=== PATIENT | female | born 1940 | race Caucasian/White ===

== ENCOUNTER → 2017-12-05 08:43 | Outpatient (CLI) | payer OTHER, SELFPAY ==
[2017-12-05 09:47] LABS: Add Manual Diff / Slide Review NO; Basophils Percent Auto 0.5 % (0-2); Eosinophils Percent Auto 2.1 % (2-4); Hematocrit 41.7 % (36-46); Hemoglobin 14.5 g/dL (12.0-16.0); Mean Corpuscular HGB Conc 34.7 % (30-36); Mean Corpuscular Hemoglobin 30.7 PG (26-34); Mean Corpuscular Volume 88.3 fL (80-100); Monocytes Percent Auto 7.1 % (3-14); Neutrophils Absolute Auto 1800 /uL (3000-5900); Neutrophils Percent Auto 46.3 % (50-75); Platelet Count 133 X10^3/uL (150-400); Red Blood Cell Count 4.72 X10^6/uL (4.0-5.2); Red Cell Distribution Width 14.7 % (11.6-14.8); White Blood Cell Count 3.9 X10^3/uL (4.5-11.0)
[2017-12-05 10:24] LABS: Alanine Aminotransferase 49 IU/L (9-52); Albumin 4.3 g/dL (3.5-5.0); Albumin Globulin Ratio 1.3 (1.0-2.8); Alkaline Phosphatase 54 U/L (38-126); Aspartate Aminotransferase 42 IU/L (14-36); BUN Creatinine Ratio 16.7 (6-22); Bilirubin Total 2.4 mg/dL (0.2-1.3); Blood Urea Nitrogen 10 mg/dL (7-17); Calcium 9.3 mg/dL (8.4-10.2); Carbon Dioxide 29 mmol/L (22-32); Chloride 105 mmol/L (98-107); Estimated Glomerular Filt Rate > 60.0 mL/min (>60); Globulin 3.2 g/dL (1.7-4.1); Glucose 110 mg/dL (80-110); HEMOLYSIS < 15 (0-50); Potassium 4.1 mmol/L (3.4-5.1); Sodium 145 mmol/L (137-145); Total Protein 7.5 g/dL (6.3-8.2)
== END ==
PROVIDERS: PCP Internal Medicine; Visit Provider Internal Medicine
DX: K86.2 Cyst of pancreas (principal); E80.7 Disorder of bilirubin metabolism, unspecified; I10 Essential (primary) hypertension
CPT/HCPCS: 36415; 80053; 85025

== ENCOUNTER → 2017-12-19 13:50 | Outpatient (CLI) | payer OTHER, SELFPAY | PROVIDERS: Family Provider Internal Medicine; PCP Internal Medicine; Visit Provider Internal Medicine | DX: M81.0 Age-related osteoporosis without current pathological fracture (principal); Z78.0 Asymptomatic menopausal state | CPT/HCPCS: 77080 ==

== ENCOUNTER → 2018-02-27 09:51 | Outpatient (CLI) | payer OTHER, SELFPAY ==
--- NOTE | 2018-02-27 | DI.MG.S_ITS ---
BILATERAL DIGITAL SCREENING MAMMOGRAM 3D/2D WITH CAD: 02/27/2018 CLINICAL: Routine screening. Comparison is made to exams dated: 01/26/2017 mammogram, 04/24/2015 mammogram - [facility], and 01/26/2012 mammogram - [facility]. The tissue of both breasts is heterogeneously dense. This may lower the sensitivity of mammography. Current study was also evaluated with a Computer Aided Detection (CAD) system. There are benign vascular and secretory calcifications in both breasts. No significant masses, calcifications, or other findings are seen in either breast. IMPRESSION: There is no mammographic evidence of malignancy. A 1 year screening mammogram is recommended. This exam was interpreted at Station ID: [id number]. NOTE: For mammograms, a report in lay terms will be sent to the patient. Approximately 15% of breast malignancies will not be visualized mammographically. In the management of a palpable breast mass, a negative mammogram must not discourage biopsy of a clinically suspicious lesion. Electronically Signed By: Mono Hopper M.D. ecl/:02/27/2018 20:10:29 letter sent: Normal Exam ACR BI-RADS Category 2: Benign Finding(s) 3342F
== END ==
PROVIDERS: Family Provider Internal Medicine; PCP Internal Medicine; Visit Provider Internal Medicine
DX: Z12.31 Encounter for screening mammogram for malignant neoplasm of breast (principal)
CPT/HCPCS: 77063; 77067

== ENCOUNTER → 2018-04-30 14:17 | Outpatient (CLI) | payer OTHER, SELFPAY ==
[2018-04-30 14:54] LABS: Add Manual Diff / Slide Review NO; Basophils Absolute Auto 0 /uL (0-100); Basophils Percent Auto 0.4 % (0-2); Eosinophils Absolute Auto 100 /uL (0-450); Eosinophils Percent Auto 2.8 % (2-4); Hematocrit 41.3 % (36-46); Hemoglobin 14.1 g/dL (12.0-16.0); Lymphocytes Absolute Auto 2000 /uL (1100-4500); Lymphocytes Percent Auto 51.8 % (25-40); Mean Corpuscular HGB Conc 34.1 % (30-36); Mean Corpuscular Hemoglobin 30.5 PG (26-34); Mean Corpuscular Volume 89.3 fL (80-100); Monocytes Absolute Auto 400 /uL (0-900); Monocytes Percent Auto 9.6 % (3-14); Neutrophils Absolute Auto 1400 /uL (1500-7000); Neutrophils Percent Auto 35.4 % (50-75); Platelet Count 136 X10^3/uL (150-400); Red Blood Cell Count 4.63 X10^6/uL (4.0-5.2); Red Cell Distribution Width 14.9 % (11.6-14.8); White Blood Cell Count 3.9 X10^3/uL (4.5-11.0)
[2018-04-30 15:07] LABS: Alanine Aminotransferase 38 IU/L (9-52); Albumin 4.5 g/dL (3.5-5.0); Albumin Globulin Ratio 1.4 (1.0-2.8); Alkaline Phosphatase 64 U/L (38-126); Aspartate Aminotransferase 37 IU/L (14-36); BUN Creatinine Ratio 23.3 (6-22); Bilirubin Total 1.4 mg/dL (0.2-1.3); Blood Urea Nitrogen 14 mg/dL (7-17); Calcium 9.2 mg/dL (8.4-10.2); Carbon Dioxide 29 mmol/L (22-32); Chloride 103 mmol/L (98-107); Estimated Glomerular Filt Rate > 60.0 mL/min (>60); Globulin 3.2 g/dL (1.7-4.1); Glucose 80 mg/dL (80-110); HEMOLYSIS 19 (0-50); Potassium 4.7 mmol/L (3.4-5.1); Sodium 142 mmol/L (137-145); Total Protein 7.7 g/dL (6.3-8.2)
[2018-04-30 15:38] LABS: TSH w/ Reflex to FT4 0.57 uIU/mL (0.47-4.68)
== END ==
PROVIDERS: PCP Internal Medicine; Visit Provider Internal Medicine
DX: I10 Essential (primary) hypertension (principal); E78.00 Pure hypercholesterolemia, unspecified; D70.9 Neutropenia, unspecified; E80.7 Disorder of bilirubin metabolism, unspecified
CPT/HCPCS: 36415; 80053; 84443; 85025

== ENCOUNTER 2018-06-15 16:43 | Emergency (ER) | payer OTHER, SELFPAY ==
[2018-06-15 16:53] VITALS: BP 186/77; PULSE 66; RESP 16; TEMP 36.9; O2SAT 100
--- NOTE | 2018-06-15 16:57 | DI.RAD.S_ITS ---
PROCEDURE: XR WRIST RT MIN 3V INDICATIONS: FALL TECHNIQUE: 3 views of the wrist were acquired. COMPARISON: None. FINDINGS: Bones: No fractures or dislocations. Severe degenerative sclerosis, hypertrophic changes, and joint space loss of the first carpal metacarpal joint. No suspicious bony lesions. Soft tissues: No suspicious soft tissue calcifications. IMPRESSION: 1. No visible fractures. 2. Severe first CMC joint osteoarthritis. 3. If there is continued concern for fracture, immobilization and reimaging in 7-10 days is recommended. Dictated by: Parisa Wilkinson M.D. on 06/15/2018 at 17:24 Approved by: Parisa Wilkinson M.D. on 06/15/2018 at 17:28
--- NOTE | 2018-06-15 16:58 | DI.RAD.S_ITS ---
PROCEDURE: XR HAND RT MIN 3V INDICATIONS: fall TECHNIQUE: 3 views of the hand(s) acquired. COMPARISON: None. FINDINGS: Bones: Diffuse demineralization. No visible fractures or dislocations. Severe osteoarthritic changes at the distal interphalangeal joints 2 through 5, and proximal interphalangeal joints, particularly first and second. Severe osteophytic change at the first carpometacarpal joint. Mild, chronic appearing subluxation at these joints. Carpal bones are normally aligned. No suspicious bony lesions. Soft tissues: No suspicious soft tissue calcifications. Swelling of the second proximal and distal interphalangeal joints IMPRESSION: 1. No visible fractures. 2. Severe osteoarthritic changes as described. Dictated by: Parisa Wilkinson M.D. on 06/15/2018 at 17:32 Approved by: Parisa Wilkinson M.D. on 06/15/2018 at 17:34
[2018-06-15 20:48] VITALS: BP 186/72; PULSE 75; RESP 16; O2SAT 100
--- NOTE | 2018-06-15 20:48 | ED.UPPEXIN ---
HPI - Extremity Injury (Upper) General Chief Complaint: Extremity Injury, Upper Stated Complaint: fall this morning, right wrist pain now Time Seen by Provider: 06/15/18 20:48 Source: patient Mode of arrival: ambulatory Limitations: no limitations History of Present Illness HPI narrative: Patient is a 77-year-old female who sustained a mechanical fall landing on her right wrist and her right knee. She stated that since the fall her right knee has been a little sore but she has been able to walk on it. She is here because she is having pain in her right wrist that she states is extending up to just below her elbow. She can flex and extend the wrist but has pain in this area. Patient states she did not hit her head. No other injuries reported. Related Data Home Medications Medication Instructions Recorded Confirmed alendronate [Fosamax] 70 mg PO QWEEK #0 tab 12/29/15 06/15/18 atorvastatin [Lipitor] 20 mg PO DAILY #0 12/29/15 06/15/18 biotin 5,000 mcg PO DAILY #0 12/29/15 06/15/18 multivitamin [Multiple Vitamins] 1 tab PO DAILY #0 tab 12/29/15 06/15/18 nifedipine 30 mg PO DAILY #0 tab 12/29/15 06/15/18 omega 0-evi-lpb-fish oil [Fish Oil] 1 cap PO BID #0 tab 12/29/15 06/15/18 vitamin B complex [B 1 tab PO DAILY #0 tab 12/29/15 06/15/18 Complex-Vitamin B12] Calcium 1,200 mg PO BID 06/15/18 06/15/18 atenolol 25 mg PO QAM 06/15/18 06/15/18 atenolol 50 mg PO QPM 06/15/18 06/15/18 cholecalciferol (vitamin D3) 5,000 unit PO DAILY 06/15/18 06/15/18 [Vitamin D3] magnesium oxide 500 mg PO DIRECTED 06/15/18 06/15/18 warfarin 2.5 mg PO DAILY 06/15/18 Allergies Allergy/AdvReac Type Severity Reaction Status Date / Time Sulfa (Sulfonamide Allergy Mild FACIAL/EYE Unverified 07/05/17 12:24 Antibiotics) SWELLING, [SULFA (SULFONAMIDE ITCHING ANTIBIOTICS)] hydrocodone [HYDROCODONE] AdvReac Severe NAUSEA, Unverified 07/05/17 12:24 HEADACHE Review of Systems Constitutional Denies frequent falls, Denies headache(s) and Denies weakness ENT Ears, Nose, Mouth, and Throat: Denies vertigo, Denies dizziness, Denies headache(s) and Denies disequilibrium Cardiovascular Denies chest pain, Denies syncope and Denies dyspnea Respiratory Denies dyspnea Gastrointestinal Gastrointestinal: Denies abdominal pain, Denies nausea and Denies vomiting Musculoskeletal Comments: Right wrist pain Integumentary/Breasts Denies lesions and Denies rash Neurologic Denies confusion, Denies vertigo, Denies dizziness, Denies syncope, Denies frequent falls, Denies headache(s), Denies paresthesias, Denies disequilibrium and Denies weakness Psychiatric Denies confusion Hematologic/Lymphatic Denies easy bleeding and Denies easy bruising PFSH Medical History Hypertension (Acute) Osteoporosis (Acute) Social History Smoking Status: Never smoker Social History Smoking Status: Never smoker Exam Initial Vital Signs Initial Vital Signs: Vital Signs Temperature 98.5 F 06/15/18 16:53 Pulse Rate 66 06/15/18 16:53 Respiratory Rate 16 06/15/18 16:53 Blood Pressure 186/77 H 06/15/18 16:53 Pulse Oximetry 100 06/15/18 16:53 Const General: cooperative, comfortable, well developed, well groomed and No acute distress Orientation: alert, awake and oriented x3 Resp Effort & Inspection: normal respiratory effort Cardio Pulses: radial pulses present on the right Skin Lesions: no lesions Rashes: no rashes Neuro Sensory Exam: no sensory deficits noted Extrem Other: Patient with some tenderness to palpation on the volar aspect of the right wrist. No tenderness to palpation of the anatomical snuffbox. No tenderness palpation with axial loading of the thumb. Patient able to pronate and supinate without discomfort. Right elbow and right shoulder unremarkable. Fingers unremarkable. Procedures Orthopedic Splinting/Casting Injury #1: Side: right Upper Extremity Injury Location: wrist Upper Extremity Immobilizer: wrist splint Post splinting neuro exam: intact and no change Post splinting vascular exam: no change Placed by: Nursing Course Orders Ordered: ED Orders 06/15/18 16:57 XR wrist RT min 3V Stat 06/15/18 16:58 XR hand RT min 3V Stat Vital Signs - 8 hr 06/15/18 20:48 03/22/19 21:17 Pulse Rate 75 85 Respiratory Rate 16 Blood Pressure 161/70 H Blood Pressure [Left Arm] 186/72 H Pulse Oximetry 100 MDM - Extremity Injury (Upper) Imaging Data X-ray wrist: Radiologist's impression: [address] [address] XRay Report Signed Patient: Whitney Dalal PMR#: [id number] : 9Acct:[id number] Age/Sex: 77 / FDate of Service: 06/15/18 Loc: ED Accession Number: [id number] Procedure: XR wrist RT min 3V Ordering Provider: Faith Verma D.O. PROCEDURE: XR WRIST RT MIN 3V INDICATIONS: FALL TECHNIQUE: 3 views of the wrist were acquired. COMPARISON: None. FINDINGS: Bones: No fractures or dislocations. Severe degenerative sclerosis, hypertrophic changes, and joint space loss of the first carpal metacarpal joint. No suspicious bony lesions. Soft tissues: No suspicious soft tissue calcifications. IMPRESSION: 1. No visible fractures. 2. Severe first CMC joint osteoarthritis. 3. If there is continued concern for fracture, immobilization and reimaging in 7-10 days is recommended. Dictated by: Parisa Wilkinson M.D. on 06/15/2018 at 17:24 Approved by: Parisa Wilkinson M.D. on 06/15/2018 at 17:28 X-ray hand: Radiologist's impression: [address] [id number] XRay Report Signed Patient: Whitney Dalal PMR#: [id number] : 9At:[id number] Age/Sex: 77 / FDate of Service: 06/15/18 Loc: ED Accession Number: [id number] Procedure: XR hand RT min 3V Ordering Provider: Faith Verma D.O. PROCEDURE: XR HAND RT MIN 3V INDICATIONS: fall TECHNIQUE: 3 views of the hand(s) acquired. COMPARISON: None. FINDINGS: Bones: Diffuse demineralization. No visible fractures or dislocations. Severe osteoarthritic changes at the distal interphalangeal joints 2 through 5, and proximal interphalangeal joints, particularly first and second. Severe osteophytic change at the first carpometacarpal joint. Mild, chronic appearing subluxation at these joints. Carpal bones are normally aligned. No suspicious bony lesions. Soft tissues: No suspicious soft tissue calcifications. Swelling of the second proximal and distal interphalangeal joints IMPRESSION: 1. No visible fractures. 2. Severe osteoarthritic changes as described. Dictated by: Parisa Wilkinson M.D. on 06/15/2018 at 17:32 Approved by: Parisa Wilkinson M.D. on 06/15/2018 at 17:3 [facility] Narrative Medical decision making narrative: No fractures were noted on the x-ray. Patient is neurovascularly intact. Patient was placed in a removable wrist splint for comfort. She was given care instructions and return precautions. She expressed understanding and agreement with plan. Discharge Plan Departure Patient Disposition: Home Clinical Impression: Sprain and strain of wrist Discharge Date/Time: 06/15/18 21:18 Interventions: ED Discharge Assessment Last Done: 06/15/18 21:17 Instructions: DI for Wrist Sprain Activity Restrictions/Additional Instructions: Use the wrist splint for the next couple days. You can take it off to wash your hands and to shower. Be sure to ice your wrist. Contact your primary care doctor for a follow-up. If your symptoms are not improved in 7-10 days then I do recommend repeat x-rays Prescriptions: No Action atorvastatin [Lipitor] 20 MG tablet 20 mg PO DAILY Qty: 0 RF: 0 alendronate [Fosamax] 70 MG tablet 70 mg PO QWEEK Qty: 0 RF: 0 biotin 2,500 MCG capsule 5,000 mcg PO DAILY Qty: 0 RF: 0 omega 5-xcw-jav-fish oil [Fish Oil] 1,000 mg (120 mg-180 mg) Capsule 1 cap PO BID Qty: 0 RF: 0 multivitamin [Multiple Vitamins] 1 EACH tablet 1 tab PO DAILY Qty: 0 RF: 0 nifedipine 30 MG tablet extended release 30 mg PO DAILY Qty: 0 RF: 0 vitamin B complex [B Complex-Vitamin B12] 1 EACH tablet 1 tab PO DAILY Qty: 0 RF: 0 atenolol 25 mg Tablet 25 mg PO QAM RF: 0 atenolol 25 mg Tablet 50 mg PO QPM RF: 0 magnesium oxide 500 mg Capsule 500 mg PO DIRECTED RF: 0 cholecalciferol (vitamin D3) [Vitamin D3] 5,000 unit Tablet 5,000 unit PO DAILY RF: 0 Calcium 1,200 mg 1,200 mg PO BID RF: 0 warfarin 5 mg Tablet 2.5 mg PO DAILY RF: 0 Referrals: Laurent Melton MD [Primary Care Provider] -
[2018-06-15 21:17] VITALS: BP 161/70; PULSE 85
== END 2018-06-15 21:18 | disposition home or self-care (01) ==
PROVIDERS: Emergency Provider Emergency Medicine; Family Provider Internal Medicine; PCP Internal Medicine
DX: S63.501A Unspecified sprain of right wrist, initial encounter (principal); W19.XXXA Unspecified fall, initial encounter
CPT/HCPCS: 73110; 73130; 99282; 99283

== ENCOUNTER → 2018-11-01 10:23 | Outpatient (CLI) | payer OTHER, SELFPAY ==
[2018-11-01 11:16] LABS: Add Manual Diff / Slide Review NO; Basophils Absolute Auto 0 /uL (0-100); Basophils Percent Auto 0.4 % (0-2); Eosinophils Absolute Auto 100 /uL (0-450); Hematocrit 39.1 % (36-46); Hemoglobin 13.6 g/dL (12.0-16.0); Lymphocytes Absolute Auto 1600 /uL (1100-4500); Lymphocytes Percent Auto 42.6 % (25-40); Mean Corpuscular HGB Conc 34.8 % (30-36); Mean Corpuscular Hemoglobin 30.2 PG (26-34); Monocytes Absolute Auto 300 /uL (0-900); Monocytes Percent Auto 8.8 % (3-14); Neutrophils Absolute Auto 1800 /uL (1500-7000); Neutrophils Percent Auto 46.2 % (50-75); Platelet Count 119 X10^3/uL (150-400); Red Cell Distribution Width 14.3 % (11.6-14.8); White Blood Cell Count 3.8 X10^3/uL (4.5-11.0)
[2018-11-01 11:25] LABS: Alanine Aminotransferase 35 IU/L (9-52); Albumin Globulin Ratio 1.3 (1.0-2.8); Alkaline Phosphatase 54 U/L (38-126); Aspartate Aminotransferase 35 IU/L (14-36); Bilirubin Total 2.5 mg/dL (0.2-1.3); Blood Urea Nitrogen 16 mg/dL (7-17); Calcium 9.1 mg/dL (8.4-10.2); Carbon Dioxide 28 mmol/L (22-32); Chloride 103 mmol/L (98-107); Estimated Glomerular Filt Rate > 60.0 mL/min (>60); Glucose 118 mg/dL (80-110); HEMOLYSIS < 15 (0-50); Potassium 4.7 mmol/L (3.4-5.1); Sodium 138 mmol/L (137-145)
== END ==
PROVIDERS: PCP Internal Medicine; Visit Provider Internal Medicine
DX: I48.91 Unspecified atrial fibrillation (principal); I10 Essential (primary) hypertension; E80.7 Disorder of bilirubin metabolism, unspecified; D70.9 Neutropenia, unspecified
CPT/HCPCS: 36415; 80053; 85025

== ENCOUNTER → 2019-05-13 11:42 | Outpatient (CLI) | payer MEDICARE, SELFPAY ==
[2019-05-13 13:11] LABS: Add Manual Diff / Slide Review NO; Basophils Absolute Auto 0 /uL (0-100); Basophils Percent Auto 0.9 % (0-2); Eosinophils Absolute Auto 100 /uL (0-450); Hematocrit 38.6 % (36-46); Hemoglobin 13.6 g/dL (12.0-16.0); Lymphocytes Absolute Auto 1500 /uL (1100-4500); Lymphocytes Percent Auto 50.8 % (25-40); Mean Corpuscular HGB Conc 35.1 % (30-36); Mean Corpuscular Hemoglobin 30.4 PG (26-34); Mean Corpuscular Volume 86.5 fL (80-100); Monocytes Absolute Auto 300 /uL (0-900); Monocytes Percent Auto 9.5 % (3-14); Neutrophils Absolute Auto 1100 /uL (1500-7000); Neutrophils Percent Auto 36.8 % (50-75); Platelet Count 107 X10^3/uL (150-400); Red Blood Cell Count 4.47 X10^6/uL (4.0-5.2); Red Cell Distribution Width 14.9 % (11.6-14.8); White Blood Cell Count 2.9 X10^3/uL (4.5-11.0)
[2019-05-13 13:29] LABS: Alanine Aminotransferase 31 IU/L (<35); Albumin 4.2 g/dL (3.5-5.0); Albumin Globulin Ratio 1.4 (1.0-2.8); Alkaline Phosphatase 51 U/L (38-126); Aspartate Aminotransferase 40 IU/L (14-36); BUN Creatinine Ratio 25.7 (6-22); Bilirubin Total 2.7 mg/dL (0.2-1.3); Blood Urea Nitrogen 18 mg/dL (7-17); Calcium 9.6 mg/dL (8.4-10.2); Carbon Dioxide 28 mmol/L (22-32); Chloride 102 mmol/L (98-107); Estimated Glomerular Filt Rate > 60.0 mL/min (>60); Glucose 99 mg/dL (80-110); HEMOLYSIS < 15 (0-50); Potassium 4.7 mmol/L (3.4-5.1); Sodium 139 mmol/L (137-145); Total Protein 7.2 g/dL (6.3-8.2)
== END ==
PROVIDERS: PCP Internal Medicine; Referring Provider Internal Medicine; Visit Provider Internal Medicine
DX: I48.91 Unspecified atrial fibrillation (principal); K86.2 Cyst of pancreas; I10 Essential (primary) hypertension; D70.9 Neutropenia, unspecified
CPT/HCPCS: 36415; 80053; 85025

== ENCOUNTER → 2019-11-11 10:41 | Outpatient (CLI) | payer MEDICARE, SELFPAY ==
[2019-11-11 12:10] LABS: Add Manual Diff / Slide Review NO; Basophils Absolute Auto 0 /uL (0-100); Basophils Percent Auto 0.4 % (0-2); Eosinophils Absolute Auto 0 /uL (0-450); Eosinophils Percent Auto 1.7 % (2-4); Hematocrit 36.9 % (36-46); Hemoglobin 13.2 g/dL (12.0-16.0); Lymphocytes Absolute Auto 1400 /uL (1100-4500); Lymphocytes Percent Auto 49.7 % (25-40); Mean Corpuscular HGB Conc 35.6 % (30-36); Mean Corpuscular Hemoglobin 30.4 PG (26-34); Mean Corpuscular Volume 85.2 fL (80-100); Monocytes Absolute Auto 300 /uL (0-900); Monocytes Percent Auto 10.2 % (3-14); Neutrophils Absolute Auto 1000 /uL (1500-7000); Platelet Count 102 X10^3/uL (150-400); Red Blood Cell Count 4.34 X10^6/uL (4.0-5.2); Red Cell Distribution Width 14.5 % (11.6-14.8); White Blood Cell Count 2.7 X10^3/uL (4.5-11.0)
[2019-11-11 12:40] LABS: Alanine Aminotransferase 29 IU/L (<35); Albumin 3.8 g/dL (3.5-5.0); Albumin Globulin Ratio 1.5 (1.0-2.8); Alkaline Phosphatase 59 U/L (38-126); Aspartate Aminotransferase 35 IU/L (14-36); BUN Creatinine Ratio 18.1 (6-22); Bilirubin Total 2.1 mg/dL (0.2-1.3); Blood Urea Nitrogen 13 mg/dL (7-17); Calcium 8.9 mg/dL (8.4-10.2); Carbon Dioxide 26 mmol/L (22-32); Chloride 103 mmol/L (98-107); Estimated Glomerular Filt Rate > 60.0 mL/min (>60); Globulin 2.6 g/dL (1.7-4.1); Glucose 145 mg/dL (80-110); HEMOLYSIS < 15 (0-50); Sodium 136 mmol/L (137-145); Total Protein 6.4 g/dL (6.3-8.2)
== END ==
PROVIDERS: PCP Internal Medicine; Referring Provider Internal Medicine; Visit Provider Internal Medicine
DX: D69.6 Thrombocytopenia, unspecified (principal); K86.2 Cyst of pancreas
CPT/HCPCS: 36415; 80053; 85025

== ENCOUNTER → 2020-04-30 10:42 | Outpatient (CLI) | payer OTHER, SELFPAY ==
[2020-04-30 12:00] LABS: Add Manual Diff / Slide Review NO; Basophils Absolute Auto 0 /uL (0-100); Basophils Percent Auto 0.5 % (0-2); Eosinophils Absolute Auto 100 /uL (0-450); Hematocrit 38.6 % (36-46); Hemoglobin 13.4 g/dL (12.0-16.0); Lymphocytes Absolute Auto 1400 /uL (1100-4500); Lymphocytes Percent Auto 52.8 % (25-40); Mean Corpuscular HGB Conc 34.8 % (30-36); Mean Corpuscular Hemoglobin 30.2 PG (26-34); Mean Corpuscular Volume 86.8 fL (80-100); Monocytes Absolute Auto 200 /uL (0-900); Monocytes Percent Auto 7.7 % (3-14); Neutrophils Absolute Auto 1000 /uL (1500-7000); Platelet Count 68 X10^3/uL (150-400); Red Blood Cell Count 4.44 X10^6/uL (4.0-5.2); Red Cell Distribution Width 14.7 % (11.6-14.8); White Blood Cell Count 2.7 X10^3/uL (4.5-11.0)
[2020-04-30 12:12] LABS: Alanine Aminotransferase 31 IU/L (<35); Albumin Globulin Ratio 1.3 (1.0-2.8); Alkaline Phosphatase 63 U/L (38-126); Aspartate Aminotransferase 40 IU/L (14-36); BUN Creatinine Ratio 26.9 (6-22); Bilirubin Total 2.3 mg/dL (0.2-1.3); Blood Urea Nitrogen 18 mg/dL (7-17); Calcium 9.5 mg/dL (8.4-10.2); Carbon Dioxide 34 mmol/L (22-32); Chloride 103 mmol/L (98-107); Estimated Glomerular Filt Rate > 60.0 mL/min (>60); Globulin 3.2 g/dL (1.7-4.1); Glucose 78 mg/dL (80-110); HEMOLYSIS < 15 (0-50); Potassium 4.6 mmol/L (3.4-5.1); Sodium 138 mmol/L (137-145); Total Protein 7.2 g/dL (6.3-8.2)
== END ==
PROVIDERS: PCP Internal Medicine; Referring Provider Internal Medicine; Visit Provider Internal Medicine
DX: R73.02 Impaired glucose tolerance (oral) (principal); K86.2 Cyst of pancreas; D69.6 Thrombocytopenia, unspecified
CPT/HCPCS: 36415; 80053; 85025

== ENCOUNTER → 2020-05-13 12:24 | Outpatient (CLI) | payer OTHER, SELFPAY ==
--- NOTE | 2020-05-13 | DI.RAD.S_ITS ---
PROCEDURE: XR DEXA AXIAL SKELETON INDICATIONS: Routine screening COMPARISON: [facility], CR, XR DEXA AXIAL SKELETON, 12/19/2017, 14:25. FINDINGS: This blank DEXA report has been sent in error by the PACS system. The correct and complete report will be forthcoming in 1-2 days. Thank you for your patience and understanding. Dictated by: Sherrie Sandoval MD, PhD on 05/13/2020 at 17:51 Approved by: Sherrie Sandoval MD, PhD on 05/13/2020 at 17:51
== END ==
PROVIDERS: PCP Internal Medicine; Referring Provider Internal Medicine; Visit Provider Internal Medicine
DX: Z13.820 Encounter for screening for osteoporosis (principal); M85.852 Other specified disorders of bone density and structure, left thigh; Z78.0 Asymptomatic menopausal state; Z82.62 Family history of osteoporosis
CPT/HCPCS: 77080

== ENCOUNTER → 2020-06-10 14:56 | Outpatient (CLI) | payer MEDICARE, SELFPAY ==
[2020-06-10] MEDS: COVID-19 VACC #1, MRNA(MOD) 100 MCG/0.5 ML VIAL IM (15:12)
== END ==
PROVIDERS: PCP Internal Medicine; Visit Provider Internal Medicine
DX: Z23 Encounter for immunization (principal)
CPT/HCPCS: 0011A; 91301

== ENCOUNTER → 2020-07-08 16:17 | Outpatient (CLI) | payer MEDICARE, SELFPAY ==
[2020-07-08] MEDS: COVID-19 VACC #2, MRNA(MOD) 100 MCG/0.5 ML VIAL IM (16:29)
== END ==
PROVIDERS: PCP Internal Medicine; Visit Provider Internal Medicine
DX: Z23 Encounter for immunization (principal)
CPT/HCPCS: 0012A; 91301

== ENCOUNTER → 2020-11-12 11:12 | Outpatient (CLI) | payer OTHER, SELFPAY ==
[2020-11-12 12:05] LABS: Add Manual Diff / Slide Review NO; Basophils Absolute Auto 0 /uL (0-100); Basophils Percent Auto 0.2 % (0-2); Eosinophils Absolute Auto 0 /uL (0-450); Eosinophils Percent Auto 1.7 % (2-4); Hematocrit 38.6 % (36-46); Hemoglobin 12.9 g/dL (12.0-16.0); Lymphocytes Absolute Auto 1600 /uL (1100-4500); Lymphocytes Percent Auto 61.3 % (25-40); Mean Corpuscular HGB Conc 33.6 % (30-36); Mean Corpuscular Hemoglobin 29.2 PG (26-34); Mean Corpuscular Volume 87.1 fL (80-100); Monocytes Absolute Auto 200 /uL (0-900); Monocytes Percent Auto 8.6 % (3-14); Neutrophils Absolute Auto 700 /uL (1500-7000); Neutrophils Percent Auto 28.2 % (50-75); Platelet Count 66 X10^3/uL (150-400); Red Blood Cell Count 4.43 X10^6/uL (4.0-5.2); Red Cell Distribution Width 15.4 % (11.6-14.8); White Blood Cell Count 2.6 X10^3/uL (4.5-11.0)
[2020-11-12 12:12] LABS: Alanine Aminotransferase 35 IU/L (<35); Albumin 4.2 g/dL (3.5-5.0); Albumin Globulin Ratio 1.6 (1.0-2.8); Alkaline Phosphatase 61 U/L (38-126); Aspartate Aminotransferase 40 IU/L (14-36); BUN Creatinine Ratio 25.4 (6-22); Bilirubin Total 2.3 mg/dL (0.2-1.3); Blood Urea Nitrogen 17 mg/dL (7-17); Calcium 9.5 mg/dL (8.4-10.2); Carbon Dioxide 30 mmol/L (22-32); Chloride 101 mmol/L (98-107); Estimated Glomerular Filt Rate > 60.0 mL/min (>60); Globulin 2.7 g/dL (1.7-4.1); Glucose 74 mg/dL (80-110); HEMOLYSIS < 15 (0-50); Potassium 4.2 mmol/L (3.4-5.1); Sodium 137 mmol/L (137-145); Total Protein 6.9 g/dL (6.3-8.2)
== END ==
PROVIDERS: PCP Internal Medicine; Referring Provider Internal Medicine; Visit Provider Internal Medicine
DX: R73.02 Impaired glucose tolerance (oral) (principal); K86.2 Cyst of pancreas; D69.6 Thrombocytopenia, unspecified
CPT/HCPCS: 36415; 80053; 85025